=== PATIENT | female | born 1945 | race Caucasian/White ===

== ENCOUNTER 2017-09-30 06:00 | Day surgery (SDC) | payer OTHER ==
[~2017-09-30] VITALS: Ht 157.5 cm; Wt 62.6 kg
[~2017-09-30 06:00] MED LIST: AMLODIPINE BESYL5 MG; FLOVENT DI50 MCG/DIS; LOSARTAN-HCTZ1 EAC2; METOPROLOL SUCC25 MG; MONTELUKAST SOD10 MG; SYMBICORT 16010.2 GM
== END 2017-10-01 08:00 | disposition home or self-care (01) ==
LOC: SURH 06:00 → O/R 06:00 → CIR.AMB 06:00 → SURH 12:30 → EDSTATUS 12:30 → SURH 13:19 → O/R 13:19 → SURH 19:02 → CIR.AMB 10-01 08:00 → SURH 10-01 12:12
DX: C50.411 Malignant neoplasm of upper-outer quadrant of right female breast (principal)

== ENCOUNTER 2025-03-03 10:10 | Emergency (ER) | payer OTHER ==
[~2025-03-03] VITALS: Ht 152.4 cm; Wt 53.5 kg
[2025-03-03] MEDS ORDERED: ELIQUIS2.5 MG PO (10:28)
== END 2025-03-03 11:06 | disposition home or self-care (01) ==
LOC: ER 10:18
DX: H81.12 Benign paroxysmal vertigo, left ear (principal); H61.22 Impacted cerumen, left ear; I10 Essential (primary) hypertension; Z88.9 Allergy status to unspecified drugs, medicaments and biological substances

== ENCOUNTER 2025-03-12 09:53 | Emergency (ER) | payer OTHER ==
[~2025-03-12] VITALS: Ht 154.9 cm; Wt 54.4 kg
[~2025-03-12 09:53] MED LIST changes: +ELIQUIS2.5 MG PO
[2025-03-12] MEDS ORDERED: TOPROL XL100 M1 PO (10:15)
[2025-03-12] MEDS ORDERED: CRESTOR40 MG PO (10:15)
[2025-03-12] MEDS ORDERED: LIPOFEN150 MG PO (10:16)
[2025-03-12] MEDS ORDERED: ACETAMINOPHEN 500 MG GEL..CAP PO ONE (12:07)
[2025-03-12 12:38] LABS: BASO % 0.5 % (0.1-1.2); EOS # 0.36 (0.04-0.54); EOS % 2.8 % (0.7-7.0); HEMOGLOBIN 12.4 g/dL (11.2-15.7); LYMPH # 2.22 (1.18-3.74); LYMPH % 17.2 % (19.3-53.1); MEAN CORPUSCULAR HEMOGLOBIN 30.4 pg (25.6-32.2); MONO # 0.61 (0.24-0.82); MONO % 4.7 % (4.7-12.5); NEUT # 9.57 (1.56-6.13); NEUT % 74.3 % (34.0-71.1); PLATELET COUNT 273 K/uL (163-369); RED BLOOD COUNT 4.08 M/uL (3.93-5.22); RED CELL DISTRIBUTION WIDTH 13.5 % (11.6-14.4)
[2025-03-12 13:15] LABS: ALBUMIN 3.4 gm/dL (3.4-5.0); BILIRUBIN TOTAL 0.4 mg/dL (0.3-1.2); CALCIUM 9.5 mg/dL (8.5-10.1); CREATININE SERUM 1.18 mg/dL (0.55-1.02); GFR 43.96; GLOBULINA 3.3 G/DL (2.4-3.5); POTASSIUM 4.91 mEq/L (3.5-5.1); TOTAL PROTEIN 6.7 gm/dL (6.4-8.2)
== END 2025-03-12 19:37 | disposition home or self-care (01) ==
LOC: ER 09:53
PROVIDERS: Emergency Medicine
DX: R55 Syncope and collapse (principal); I95.89 Other hypotension; M25.572 Pain in left ankle and joints of left foot; I10 Essential (primary) hypertension; Z88.9 Allergy status to unspecified drugs, medicaments and biological substances